=== PATIENT | male | born 1960 | race Caucasian/White ===

== ENCOUNTER 2019-08-31 16:10 | Inpatient (IN) | payer MEDICAID ==
[~2019-08-31] VITALS: Ht 190.5 cm; Wt 65.8 kg
[2019-08-31 15:10] VITALS: BP 115/79
[2019-08-31 17:11] VITALS: BP 115/79
[2019-08-31] MEDS ORDERED: TEMAZEPAM 15MG CAPSULE GT PRN (18:30)
[2019-08-31] MEDS ORDERED: BISACODYL 10MG SUPP PR PRN (18:30)
[2019-08-31 20:00] VITALS: BP 119/69
[2019-08-31] MEDS ORDERED: OLANZAPINE 5MG TABLET GT SCH (20:00)
[2019-08-31] MEDS ORDERED: IPRATROPIUM/ALBUTEROL 0.5-3(2.5)MG/3ML NEB HHN PRN (20:15)
[2019-08-31] MEDS ORDERED: DEXTROSE 50% WATER 50ML SYRINGE IV PRN (20:15)
[2019-08-31] MEDS ORDERED: BLOOD SUGAR DIAGNOSTIC STRIP TEST SCH (21:00)
[2019-08-31] MEDS: INSULIN LISPRO 100 UNITS/ML SUBCUT SCH (21:00)
[2019-08-31] MEDS: BLOOD SUGAR DIAGNOSTIC STRIP TEST SCH (21:00)
[2019-08-31] MEDS ORDERED: ENOXAPARIN 100MG/ML SYR SUBCUT SCH (21:00)
[2019-08-31] MEDS ORDERED: PNEUMOCOCCAL 23-VAL P-SAC VAC 0.5 ML IM ONE (21:45)
[2019-08-31] MEDS: FUROSEMIDE 40MG TABLET PO SCH (22:16)
[2019-08-31] MEDS: CARVEDILOL 3.125 MG TABLET GT SCH (22:19)
[2019-08-31] MEDS: FAMOTIDINE 20MG TABLET GT SCH (22:20)
[2019-08-31] MEDS: LACTULOSE 20G/30ML UDC PO SCH (22:22)
[2019-08-31] MEDS ORDERED: ENOXAPARIN 60MG/0.6ML SYR SUBCUT NR (22:30)
[2019-08-31] MEDS ORDERED: ENOXAPARIN 100MG/ML SYR SUBCUT NR (22:30)
[2019-08-31] MEDS: OLANZAPINE 5MG TABLET ODT GT SCH (22:36)
[2019-08-31] MEDS: INSULIN GLARGINE UD 100 UNITS/ML SYR SUBCUT SCH (22:55)
[2019-08-31] MEDS: ACETAMINOPHEN 650MG/20.3ML UDC GT PRN (23:32)
[2019-09-01] MEDS: LACTULOSE 20G/30ML UDC PO SCH ×3 (05:56→21:38)
[2019-09-01 06:19] LABS: CHLORIDE 102 mEq/L (98-107)
[2019-09-01] MEDS: BLOOD SUGAR DIAGNOSTIC STRIP TEST SCH ×4 (06:25→21:38)
[2019-09-01 06:29] LABS: BASOPHILS % 0.4 % (0.0-2.0); EOSINOPHILS % 4.4 % (0.0-5.0); HEMATOCRIT. 40.7 % (42.0-52.0); LYMPHOCYTES % 31.7 % (20.0-50.0); MEAN CORPUSCULAR HEMOGLOBIN 32.6 pg (28.0-32.0); MEAN CORPUSCULAR VOLUME 94.5 fL (80.0-94.0); MONOCYTES % 8.9 % (2.0-8.0); NEUTROPHILS % 54.6 % (40.0-76.0); PLATELET 228 x1000/uL (130-400); RED CELL DISTRIBUTION WIDTH 14.9 % (11.6-14.6)
[2019-09-01] MEDS: INSULIN LISPRO 100 UNITS/ML SUBCUT SCH ×4 (07:32→21:00)
[2019-09-01 07:53] VITALS: BP 117/83
[2019-09-01] MEDS: FUROSEMIDE 40MG TABLET PO SCH ×2 (08:32→21:38)
[2019-09-01] MEDS: POTASSIUM CHLORIDE 20MEQ TABLET SR PO SCH (08:32)
[2019-09-01] MEDS: AMIODARONE HCL 200 MG TABLET GT SCH (08:32)
[2019-09-01] MEDS: FAMOTIDINE 20MG TABLET GT SCH ×2 (08:32→21:37)
[2019-09-01] MEDS: SERTRALINE HCL 50MG TABLET GT SCH (08:33)
[2019-09-01] MEDS: ASCORBIC ACID 500 MG TABLET GT SCH (08:33)
[2019-09-01] MEDS: OLANZAPINE 5MG TABLET ODT GT SCH ×2 (08:33→17:34)
[2019-09-01] MEDS: CARVEDILOL 3.125 MG TABLET GT SCH ×2 (08:33→21:38)
[2019-09-01] MEDS: ENOXAPARIN 60MG/0.6ML SYR SUBCUT SCH ×2 (10:19→21:37)
[2019-09-01 10:42] LABS: PROTHROMBIN TIME 10.7 sec (9.6-11.0)
[2019-09-01] MEDS ORDERED: POTASSIUM CHLORIDE 20MEQ/PACKET PO NR (11:45)
[2019-09-01] MEDS ORDERED: BISACODYL 5MG TABLET PO PRN (18:00)
[2019-09-01 20:00] VITALS: BP 116/76
[2019-09-01] MEDS: INSULIN GLARGINE UD 100 UNITS/ML SYR SUBCUT SCH (21:41)
[2019-09-02] MEDS: LACTULOSE 20G/30ML UDC PO SCH ×3 (06:01→20:32)
[2019-09-02 06:13] LABS: BASOPHILS % 0.4 % (0.0-2.0); EOSINOPHILS % 4.8 % (0.0-5.0); HEMATOCRIT. 39.9 % (42.0-52.0); LYMPHOCYTES % 29.2 % (20.0-50.0); MEAN CORPUSCULAR HEMOGLOBIN 32.9 pg (28.0-32.0); MEAN PLATELET VOLUME 7.8 fl (7.4-10.4); MONOCYTES % 9.4 % (2.0-8.0); NEUTROPHILS % 56.2 % (40.0-76.0); PLATELET 230 x1000/uL (130-400); RED BLOOD CELL COUNT 4.24 mill/uL (4.7-6.1); RED CELL DISTRIBUTION WIDTH 14.5 % (11.6-14.6)
[2019-09-02 06:18] LABS: CHLORIDE 104 mEq/L (98-107)
[2019-09-02 06:27] LABS: TOTAL IRON BINDING CAPACITY 229 ug/dL (250-450)
[2019-09-02 07:35] LABS: PROSTRATE SPECIFIC AG TOTAL 0.15 ng/mL (0.0-4.0)
[2019-09-02 08:03] VITALS: BP 125/83
[2019-09-02 08:10] LABS: FOLIC ACID (FOLATE) SERUM 15.1 ng/mL (>5.38)
[2019-09-02] MEDS: ASCORBIC ACID 500 MG TABLET GT SCH (08:47)
[2019-09-02] MEDS: SERTRALINE HCL 50MG TABLET GT SCH (08:47)
[2019-09-02] MEDS: POTASSIUM CHLORIDE 20MEQ TABLET SR PO SCH (08:47)
[2019-09-02] MEDS: OLANZAPINE 5MG TABLET ODT GT SCH ×2 (08:47→17:06)
[2019-09-02] MEDS: FAMOTIDINE 20MG TABLET GT SCH ×2 (08:47→20:34)
[2019-09-02] MEDS: FUROSEMIDE 40MG TABLET PO SCH ×2 (08:48→20:34)
[2019-09-02] MEDS: CARVEDILOL 3.125 MG TABLET GT SCH ×2 (08:48→20:34)
[2019-09-02] MEDS: AMIODARONE HCL 200 MG TABLET GT SCH (08:48)
[2019-09-02] MEDS: ENOXAPARIN 60MG/0.6ML SYR SUBCUT SCH ×2 (08:48→20:33)
[2019-09-02] MEDS: INSULIN LISPRO 100 UNITS/ML SUBCUT SCH ×4 (08:48→20:42)
[2019-09-02] MEDS ORDERED: POTASSIUM CHLORIDE 20MEQ TABLET SR PO SCH (10:15)
[2019-09-02] MEDS: BLOOD SUGAR DIAGNOSTIC STRIP TEST SCH ×3 (11:24→20:43)
[2019-09-02] MEDS: MULTIVITAMINS,THER W-MINERALS TABLET PO SCH (12:53)
[2019-09-02] MEDS: FOLIC ACID 1MG TABLET PO SCH (12:53)
[2019-09-02] MEDS: THIAMINE HCL 100MG TABLET PO SCH (12:53)
[2019-09-02 15:35] LABS: ETHANOL BLOOD < 10 mg/dL
[2019-09-02 15:41] LABS: T4 FREE 1.05 ng/dL (0.76-1.46)
[2019-09-02 20:00] VITALS: BP 112/75
[2019-09-02] MEDS: ACETAMINOPHEN 650MG/20.3ML UDC GT PRN (20:33)
[2019-09-02] MEDS: INSULIN GLARGINE UD 100 UNITS/ML SYR SUBCUT SCH (22:41)
[2019-09-03] MEDS: LACTULOSE 20G/30ML UDC PO SCH ×3 (06:00→22:00)
[2019-09-03] MEDS: BLOOD SUGAR DIAGNOSTIC STRIP TEST SCH ×4 (06:45→21:04)
[2019-09-03 07:40] LABS: BASOPHILS % 0.5 % (0.0-2.0); EOSINOPHILS % 4.8 % (0.0-5.0); LYMPHOCYTES % 31.3 % (20.0-50.0); MEAN CORPUSCULAR HEMOGLOBIN 32.5 pg (28.0-32.0); MEAN CORPUSCULAR VOLUME 94.9 fL (80.0-94.0); MEAN PLATELET VOLUME 7.8 fl (7.4-10.4); MONOCYTES % 8.1 % (2.0-8.0); NEUTROPHILS % 55.3 % (40.0-76.0); PLATELET 234 x1000/uL (130-400); RED BLOOD CELL COUNT 4.31 mill/uL (4.7-6.1); RED CELL DISTRIBUTION WIDTH 14.7 % (11.6-14.6)
[2019-09-03 07:41] LABS: CHLORIDE 105 mEq/L (98-107)
[2019-09-03 08:12] VITALS: BP 127/81
[2019-09-03] MEDS: MULTIVITAMINS,THER W-MINERALS TABLET PO SCH (08:47)
[2019-09-03] MEDS: ENOXAPARIN 60MG/0.6ML SYR SUBCUT SCH ×2 (08:47→20:47)
[2019-09-03] MEDS: FOLIC ACID 1MG TABLET PO SCH (08:48)
[2019-09-03] MEDS: CARVEDILOL 3.125 MG TABLET GT SCH ×2 (08:48→20:48)
[2019-09-03] MEDS: OLANZAPINE 5MG TABLET ODT GT SCH ×2 (08:48→17:04)
[2019-09-03] MEDS: THIAMINE HCL 100MG TABLET PO SCH (08:48)
[2019-09-03] MEDS: SERTRALINE HCL 50MG TABLET GT SCH (08:48)
[2019-09-03] MEDS: POTASSIUM CHLORIDE 20MEQ TABLET SR PO SCH (08:48)
[2019-09-03] MEDS: FAMOTIDINE 20MG TABLET GT SCH ×2 (08:48→20:48)
[2019-09-03] MEDS: ASCORBIC ACID 500 MG TABLET GT SCH (08:49)
[2019-09-03] MEDS: FUROSEMIDE 40MG TABLET PO SCH ×2 (08:49→20:47)
[2019-09-03] MEDS: INSULIN LISPRO 100 UNITS/ML SUBCUT SCH ×4 (08:49→21:00)
[2019-09-03] MEDS: AMIODARONE HCL 200 MG TABLET GT SCH (08:49)
[2019-09-03] MEDS ORDERED: POTASSIUM CHLORIDE 20MEQ TABLET SR PO NR (14:30)
[2019-09-03 20:00] VITALS: BP 111/73
[2019-09-03] MEDS: INSULIN GLARGINE UD 100 UNITS/ML SYR SUBCUT SCH (22:53)
[2019-09-04] MEDS: LACTULOSE 20G/30ML UDC PO SCH ×3 (06:00→21:41)
[2019-09-04] MEDS: BLOOD SUGAR DIAGNOSTIC STRIP TEST SCH ×4 (06:30→21:39)
[2019-09-04 08:00] VITALS: BP 140/86
[2019-09-04] MEDS: FAMOTIDINE 20MG TABLET GT SCH ×2 (08:54→21:39)
[2019-09-04] MEDS: AMIODARONE HCL 200 MG TABLET GT SCH (08:55)
[2019-09-04] MEDS: FUROSEMIDE 40MG TABLET PO SCH ×2 (08:55→21:39)
[2019-09-04] MEDS: CARVEDILOL 3.125 MG TABLET GT SCH ×2 (08:55→21:00)
[2019-09-04] MEDS: FOLIC ACID 1MG TABLET PO SCH (08:55)
[2019-09-04] MEDS: OLANZAPINE 5MG TABLET ODT GT SCH ×2 (08:55→16:37)
[2019-09-04] MEDS: SERTRALINE HCL 50MG TABLET GT SCH (08:55)
[2019-09-04] MEDS: POTASSIUM CHLORIDE 20MEQ TABLET SR PO SCH (08:55)
[2019-09-04] MEDS: THIAMINE HCL 100MG TABLET PO SCH (08:55)
[2019-09-04] MEDS: ASCORBIC ACID 500 MG TABLET GT SCH (08:55)
[2019-09-04] MEDS: INSULIN LISPRO 100 UNITS/ML SUBCUT SCH ×4 (08:56→21:00)
[2019-09-04] MEDS: ENOXAPARIN 60MG/0.6ML SYR SUBCUT SCH ×2 (08:56→21:41)
[2019-09-04] MEDS: MULTIVITAMINS,THER W-MINERALS TABLET PO SCH (08:56)
[2019-09-04 20:00] VITALS: BP 118/74
[2019-09-04] MEDS: INSULIN GLARGINE UD 100 UNITS/ML SYR SUBCUT SCH (21:42)
[2019-09-05] MEDS: LACTULOSE 20G/30ML UDC PO SCH ×3 (05:35→21:31)
[2019-09-05 06:21] LABS: BASOPHILS % 0.3 % (0.0-2.0); EOSINOPHILS % 4.4 % (0.0-5.0); HEMATOCRIT. 42.9 % (42.0-52.0); HEMOGLOBIN. 14.7 g/dL (14.0-18.0); LYMPHOCYTES % 29.6 % (20.0-50.0); MEAN CORPUSCULAR HEMOGLOBIN 32.4 pg (28.0-32.0); MEAN CORPUSCULAR VOLUME 94.5 fL (80.0-94.0); MEAN PLATELET VOLUME 7.8 fl (7.4-10.4); MONOCYTES % 9.2 % (2.0-8.0); NEUTROPHILS % 56.5 % (40.0-76.0); PLATELET 235 x1000/uL (130-400); RED BLOOD CELL COUNT 4.54 mill/uL (4.7-6.1); RED CELL DISTRIBUTION WIDTH 14.6 % (11.6-14.6)
[2019-09-05] MEDS: BLOOD SUGAR DIAGNOSTIC STRIP TEST SCH ×4 (06:30→21:31)
[2019-09-05] MEDS: INSULIN LISPRO 100 UNITS/ML SUBCUT SCH ×4 (06:31→21:00)
[2019-09-05 07:02] LABS: CHLORIDE 105 mEq/L (98-107)
[2019-09-05 07:07] LABS: 25-HYDROXY VITAMIN D3 26 ng/mL (.)
[2019-09-05 07:47] VITALS: BP 123/77
[2019-09-05] MEDS: ENOXAPARIN 60MG/0.6ML SYR SUBCUT SCH ×2 (08:42→21:30)
[2019-09-05] MEDS: MULTIVITAMINS,THER W-MINERALS TABLET PO SCH (08:42)
[2019-09-05] MEDS: FAMOTIDINE 20MG TABLET GT SCH ×2 (08:43→21:30)
[2019-09-05] MEDS: POTASSIUM CHLORIDE 20MEQ TABLET SR PO SCH (08:43)
[2019-09-05] MEDS: SERTRALINE HCL 50MG TABLET GT SCH (08:43)
[2019-09-05] MEDS: FOLIC ACID 1MG TABLET PO SCH (08:43)
[2019-09-05] MEDS: FUROSEMIDE 40MG TABLET PO SCH ×2 (08:43→21:30)
[2019-09-05] MEDS: CARVEDILOL 3.125 MG TABLET GT SCH ×2 (08:43→21:00)
[2019-09-05] MEDS: ASCORBIC ACID 500 MG TABLET GT SCH (08:43)
[2019-09-05] MEDS: THIAMINE HCL 100MG TABLET PO SCH (08:43)
[2019-09-05] MEDS: AMIODARONE HCL 200 MG TABLET GT SCH (08:43)
[2019-09-05] MEDS: OLANZAPINE 5MG TABLET ODT GT SCH ×2 (08:43→16:43)
[2019-09-05 20:00] VITALS: BP 123/80
[2019-09-05] MEDS: INSULIN GLARGINE UD 100 UNITS/ML SYR SUBCUT SCH (21:31)
[2019-09-06] MEDS: LACTULOSE 20G/30ML UDC PO SCH ×3 (05:32→22:00)
[2019-09-06] MEDS: INSULIN LISPRO 100 UNITS/ML SUBCUT SCH ×4 (05:33→21:00)
[2019-09-06] MEDS: BLOOD SUGAR DIAGNOSTIC STRIP TEST SCH ×4 (05:33→21:39)
[2019-09-06 08:00] VITALS: BP_SYST 115; BP_DIAS 77; BP_DIAS 97
[2019-09-06 08:39] VITALS: BP 115/77
[2019-09-06] MEDS: FAMOTIDINE 20MG TABLET GT SCH ×2 (08:49→21:38)
[2019-09-06] MEDS: ENOXAPARIN 60MG/0.6ML SYR SUBCUT SCH ×2 (08:49→21:39)
[2019-09-06] MEDS: THIAMINE HCL 100MG TABLET PO SCH (08:50)
[2019-09-06] MEDS: FUROSEMIDE 40MG TABLET PO SCH ×2 (08:50→21:38)
[2019-09-06] MEDS: MULTIVITAMINS,THER W-MINERALS TABLET PO SCH (08:50)
[2019-09-06] MEDS: FOLIC ACID 1MG TABLET PO SCH (08:50)
[2019-09-06] MEDS: OLANZAPINE 5MG TABLET ODT GT SCH ×2 (08:50→16:54)
[2019-09-06] MEDS: AMIODARONE HCL 200 MG TABLET GT SCH (08:50)
[2019-09-06] MEDS: CARVEDILOL 3.125 MG TABLET GT SCH ×2 (08:50→21:00)
[2019-09-06] MEDS: POTASSIUM CHLORIDE 20MEQ TABLET SR PO SCH (08:50)
[2019-09-06] MEDS: ASCORBIC ACID 500 MG TABLET GT SCH (08:50)
[2019-09-06] MEDS: SERTRALINE HCL 50MG TABLET GT SCH (08:51)
[2019-09-06 20:00] VITALS: BP 114/73
[2019-09-06] MEDS: INSULIN GLARGINE UD 100 UNITS/ML SYR SUBCUT SCH (21:40)
[2019-09-07] MEDS: LACTULOSE 20G/30ML UDC PO SCH ×3 (05:39→21:47)
[2019-09-07] MEDS: BLOOD SUGAR DIAGNOSTIC STRIP TEST SCH ×4 (05:40→20:41)
[2019-09-07 08:39] VITALS: BP 123/84
[2019-09-07] MEDS: POTASSIUM CHLORIDE 20MEQ TABLET SR PO SCH (09:00)
[2019-09-07] MEDS: THIAMINE HCL 100MG TABLET PO SCH (09:00)
[2019-09-07] MEDS: FAMOTIDINE 20MG TABLET GT SCH ×2 (09:00→20:40)
[2019-09-07] MEDS: ENOXAPARIN 60MG/0.6ML SYR SUBCUT SCH ×2 (09:00→20:41)
[2019-09-07] MEDS: CARVEDILOL 3.125 MG TABLET GT SCH ×2 (09:00→20:39)
[2019-09-07] MEDS: FOLIC ACID 1MG TABLET PO SCH (09:00)
[2019-09-07] MEDS: AMIODARONE HCL 200 MG TABLET GT SCH (09:00)
[2019-09-07] MEDS: ASCORBIC ACID 500 MG TABLET GT SCH (09:00)
[2019-09-07] MEDS: FUROSEMIDE 40MG TABLET PO SCH ×2 (09:00→20:40)
[2019-09-07] MEDS: MULTIVITAMINS,THER W-MINERALS TABLET PO SCH (09:00)
[2019-09-07] MEDS: OLANZAPINE 5MG TABLET ODT GT SCH ×2 (09:00→17:55)
[2019-09-07] MEDS: INSULIN LISPRO 100 UNITS/ML SUBCUT SCH ×4 (09:00→21:48)
[2019-09-07] MEDS: SERTRALINE HCL 50MG TABLET GT SCH (09:00)
[2019-09-07 20:00] VITALS: BP 97/66
[2019-09-07] MEDS: ZOLPIDEM TARTRATE 5MG TABLET PO PRN (21:47)
[2019-09-07] MEDS: INSULIN GLARGINE UD 100 UNITS/ML SYR SUBCUT SCH (21:49)
[2019-09-08 06:18] LABS: BASOPHILS % 0.4 % (0.0-2.0); EOSINOPHILS % 4.3 % (0.0-5.0); HEMATOCRIT. 40.3 % (42.0-52.0); HEMOGLOBIN. 14.2 g/dL (14.0-18.0); LYMPHOCYTES % 29.7 % (20.0-50.0); MEAN CORPUSCULAR HEMOGLOBIN 32.9 pg (28.0-32.0); MEAN CORPUSCULAR VOLUME 93.5 fL (80.0-94.0); MEAN PLATELET VOLUME 7.9 fl (7.4-10.4); NEUTROPHILS % 56.6 % (40.0-76.0); PLATELET 235 x1000/uL (130-400); RED BLOOD CELL COUNT 4.31 mill/uL (4.7-6.1); RED CELL DISTRIBUTION WIDTH 14.4 % (11.6-14.6)
[2019-09-08] MEDS: LACTULOSE 20G/30ML UDC PO SCH ×4 (06:19→22:00)
[2019-09-08] MEDS: BLOOD SUGAR DIAGNOSTIC STRIP TEST SCH ×4 (06:20→21:58)
[2019-09-08] MEDS: INSULIN LISPRO 100 UNITS/ML SUBCUT SCH ×4 (06:25→21:00)
[2019-09-08 07:41] VITALS: BP 113/75
[2019-09-08 07:48] LABS: CHLORIDE 104 mEq/L (98-107)
[2019-09-08 08:11] LABS: 7-AMINOCLONAZEPAM CONFIRM Negative (.); ALPRAZOLAM CONFIRM Negative (.); BARBITURATE SCREEN Negative ug/mL (Cutoff:0.1); BENZODIAZEPINE SCREEN ++POSITIVE++ ng/mL (Cutoff:20); CHLORDIAZEPOXIDE CONFIRM Negative (.); CLONAZEPAM CONFIRM Negative (.); DESMETHYLCHLORDIAZEPOXIDE Negative (.); DIAZEPAM CONFIRM Negative (.); FLURAZEPAM CONFIRM Negative (.); LORAZEPAM CONFIRM Negative (.); MIDAZOLAM CONFIRM Negative (.); OPIATES SCREEN Negative ng/mL (Cutoff:5); OXAZEPAM CONFIRM Negative (.); PHENCYCLIDINE SCREEN Negative ng/mL (Cutoff:8); TEMAZEPAM CONFIRM 21 ng/mL (.); TRIAZOLAM CONFIRM Negative (.)
[2019-09-08] MEDS: POTASSIUM CHLORIDE 20MEQ TABLET SR PO SCH (08:42)
[2019-09-08] MEDS: OLANZAPINE 5MG TABLET ODT GT SCH ×2 (08:42→17:10)
[2019-09-08] MEDS: FAMOTIDINE 20MG TABLET GT SCH ×2 (08:42→21:59)
[2019-09-08] MEDS: MULTIVITAMINS,THER W-MINERALS TABLET PO SCH (08:42)
[2019-09-08] MEDS: SERTRALINE HCL 50MG TABLET GT SCH (08:42)
[2019-09-08] MEDS: FOLIC ACID 1MG TABLET PO SCH (08:42)
[2019-09-08] MEDS: THIAMINE HCL 100MG TABLET PO SCH (08:42)
[2019-09-08] MEDS: ENOXAPARIN 60MG/0.6ML SYR SUBCUT SCH ×2 (08:42→21:58)
[2019-09-08] MEDS: FUROSEMIDE 40MG TABLET PO SCH ×2 (08:43→21:59)
[2019-09-08] MEDS: ASCORBIC ACID 500 MG TABLET GT SCH (08:43)
[2019-09-08] MEDS: AMIODARONE HCL 200 MG TABLET GT SCH (08:43)
[2019-09-08] MEDS: CARVEDILOL 3.125 MG TABLET GT SCH ×2 (08:43→21:00)
[2019-09-08] MEDS: ACETAMINOPHEN 650MG/20.3ML UDC GT PRN (09:28)
[2019-09-08] MEDS ORDERED: ONDANSETRON 4MG ODT PO PRN (10:00)
[2019-09-08 20:00] VITALS: BP 115/75
[2019-09-08] MEDS: ZOLPIDEM TARTRATE 5MG TABLET PO PRN (22:18)
[2019-09-08] MEDS: INSULIN GLARGINE UD 100 UNITS/ML SYR SUBCUT SCH (22:21)
[2019-09-09] MEDS: LACTULOSE 20G/30ML UDC PO SCH ×3 (06:00→21:15)
[2019-09-09] MEDS: BLOOD SUGAR DIAGNOSTIC STRIP TEST SCH ×4 (06:33→21:14)
[2019-09-09] MEDS: INSULIN LISPRO 100 UNITS/ML SUBCUT SCH ×4 (06:36→21:00)
[2019-09-09 07:39] LABS: BASOPHILS % 0.4 % (0.0-2.0); EOSINOPHILS % 3.9 % (0.0-5.0); HEMATOCRIT. 43.1 % (42.0-52.0); HEMOGLOBIN. 14.8 g/dL (14.0-18.0); LYMPHOCYTES % 26.6 % (20.0-50.0); MEAN CORPUSCULAR HEMOGLOBIN 32.4 pg (28.0-32.0); MEAN CORPUSCULAR VOLUME 94.4 fL (80.0-94.0); MONOCYTES % 9.4 % (2.0-8.0); NEUTROPHILS % 59.7 % (40.0-76.0); PLATELET 239 x1000/uL (130-400); RED BLOOD CELL COUNT 4.57 mill/uL (4.7-6.1); RED CELL DISTRIBUTION WIDTH 14.4 % (11.6-14.6)
[2019-09-09 07:56] LABS: CHLORIDE 104 mEq/L (98-107)
[2019-09-09 08:00] VITALS: BP 123/86
[2019-09-09] MEDS: ASCORBIC ACID 500 MG TABLET GT SCH (09:44)
[2019-09-09] MEDS: SERTRALINE HCL 50MG TABLET GT SCH (09:44)
[2019-09-09] MEDS: FAMOTIDINE 20MG TABLET GT SCH ×2 (09:44→21:14)
[2019-09-09] MEDS: ENOXAPARIN 60MG/0.6ML SYR SUBCUT SCH ×2 (09:44→21:14)
[2019-09-09] MEDS: FOLIC ACID 1MG TABLET PO SCH (09:44)
[2019-09-09] MEDS: POTASSIUM CHLORIDE 20MEQ TABLET SR PO SCH (09:44)
[2019-09-09] MEDS: THIAMINE HCL 100MG TABLET PO SCH (09:44)
[2019-09-09] MEDS: FUROSEMIDE 40MG TABLET PO SCH ×2 (09:44→21:14)
[2019-09-09] MEDS: MULTIVITAMINS,THER W-MINERALS TABLET PO SCH (09:44)
[2019-09-09] MEDS: AMIODARONE HCL 200 MG TABLET GT SCH (09:44)
[2019-09-09] MEDS: CARVEDILOL 3.125 MG TABLET GT SCH ×2 (09:45→21:14)
[2019-09-09] MEDS: OLANZAPINE 5MG TABLET ODT GT SCH ×2 (09:45→17:00)
[2019-09-09 20:50] VITALS: BP 118/71
[2019-09-09] MEDS: INSULIN GLARGINE UD 100 UNITS/ML SYR SUBCUT SCH (21:35)
[2019-09-10] MEDS: LACTULOSE 20G/30ML UDC PO SCH ×3 (05:54→21:33)
[2019-09-10] MEDS: BLOOD SUGAR DIAGNOSTIC STRIP TEST SCH ×4 (05:55→21:33)
[2019-09-10 06:33] LABS: BASOPHILS % 0.3 % (0.0-2.0); EOSINOPHILS % 3.6 % (0.0-5.0); HEMATOCRIT. 40.6 % (42.0-52.0); HEMOGLOBIN. 14.3 g/dL (14.0-18.0); LYMPHOCYTES % 27.3 % (20.0-50.0); MEAN CORPUSCULAR HEMOGLOBIN 32.8 pg (28.0-32.0); MEAN CORPUSCULAR VOLUME 93.2 fL (80.0-94.0); MEAN PLATELET VOLUME 7.8 fl (7.4-10.4); MONOCYTES % 9.8 % (2.0-8.0); PLATELET 221 x1000/uL (130-400); RED BLOOD CELL COUNT 4.36 mill/uL (4.7-6.1)
[2019-09-10 06:42] LABS: CHLORIDE 103 mEq/L (98-107)
[2019-09-10 08:00] VITALS: BP 121/81
[2019-09-10] MEDS: OLANZAPINE 5MG TABLET ODT GT SCH ×2 (10:39→16:29)
[2019-09-10] MEDS: ENOXAPARIN 60MG/0.6ML SYR SUBCUT SCH ×2 (10:39→21:33)
[2019-09-10] MEDS: POTASSIUM CHLORIDE 20MEQ TABLET SR PO SCH (10:39)
[2019-09-10] MEDS: SERTRALINE HCL 50MG TABLET GT SCH (10:39)
[2019-09-10] MEDS: THIAMINE HCL 100MG TABLET PO SCH (10:40)
[2019-09-10] MEDS: FOLIC ACID 1MG TABLET PO SCH (10:40)
[2019-09-10] MEDS: FAMOTIDINE 20MG TABLET GT SCH ×2 (10:40→21:49)
[2019-09-10] MEDS: ASCORBIC ACID 500 MG TABLET GT SCH (10:40)
[2019-09-10] MEDS: FUROSEMIDE 40MG TABLET PO SCH ×2 (10:40→21:48)
[2019-09-10] MEDS: AMIODARONE HCL 200 MG TABLET GT SCH (10:41)
[2019-09-10] MEDS: CARVEDILOL 3.125 MG TABLET GT SCH ×2 (10:42→21:33)
[2019-09-10] MEDS: MULTIVITAMINS,THER W-MINERALS TABLET PO SCH (10:45)
[2019-09-10 12:00] VITALS: BP 134/78
[2019-09-10] MEDS: INSULIN LISPRO 100 UNITS/ML SUBCUT SCH ×3 (13:00→21:00)
[2019-09-10 16:00] VITALS: BP 121/77
[2019-09-10 20:41] VITALS: BP 115/73
[2019-09-10] MEDS: INSULIN GLARGINE UD 100 UNITS/ML SYR SUBCUT SCH (21:34)
[2019-09-11] MEDS: INSULIN LISPRO 100 UNITS/ML SUBCUT SCH ×4 (06:18→21:00)
[2019-09-11] MEDS: LACTULOSE 20G/30ML UDC PO SCH ×3 (06:18→21:46)
[2019-09-11] MEDS: BLOOD SUGAR DIAGNOSTIC STRIP TEST SCH ×4 (06:18→21:47)
[2019-09-11 08:00] VITALS: BP 132/89
[2019-09-11] MEDS: CARVEDILOL 3.125 MG TABLET GT SCH ×2 (09:06→21:46)
[2019-09-11] MEDS: FUROSEMIDE 40MG TABLET PO SCH ×2 (09:06→21:47)
[2019-09-11] MEDS: FAMOTIDINE 20MG TABLET GT SCH ×2 (09:06→21:47)
[2019-09-11] MEDS: ENOXAPARIN 60MG/0.6ML SYR SUBCUT SCH ×2 (09:06→21:57)
[2019-09-11] MEDS: MULTIVITAMINS,THER W-MINERALS TABLET PO SCH (09:06)
[2019-09-11] MEDS: OLANZAPINE 5MG TABLET ODT GT SCH ×2 (09:06→17:08)
[2019-09-11] MEDS: THIAMINE HCL 100MG TABLET PO SCH (09:06)
[2019-09-11] MEDS: POTASSIUM CHLORIDE 20MEQ TABLET SR PO SCH (09:06)
[2019-09-11] MEDS: ASCORBIC ACID 500 MG TABLET GT SCH (09:06)
[2019-09-11] MEDS: SERTRALINE HCL 50MG TABLET GT SCH (09:06)
[2019-09-11] MEDS: AMIODARONE HCL 200 MG TABLET GT SCH (09:07)
[2019-09-11] MEDS: FOLIC ACID 1MG TABLET PO SCH (09:07)
[2019-09-11] MEDS: ACETAMINOPHEN 650MG/20.3ML UDC GT PRN (19:47)
[2019-09-11 20:00] VITALS: BP 122/77
[2019-09-11] MEDS: INSULIN GLARGINE UD 100 UNITS/ML SYR SUBCUT SCH (22:00)
[2019-09-12] MEDS: LACTULOSE 20G/30ML UDC PO SCH ×3 (05:35→21:37)
[2019-09-12] MEDS: BLOOD SUGAR DIAGNOSTIC STRIP TEST SCH ×4 (06:37→21:37)
[2019-09-12] MEDS: INSULIN LISPRO 100 UNITS/ML SUBCUT SCH ×4 (06:55→21:00)
[2019-09-12 08:00] VITALS: BP 149/94
[2019-09-12] MEDS: SERTRALINE HCL 50MG TABLET GT SCH (08:23)
[2019-09-12] MEDS: FAMOTIDINE 20MG TABLET GT SCH ×2 (08:23→21:36)
[2019-09-12] MEDS: MULTIVITAMINS,THER W-MINERALS TABLET PO SCH (08:23)
[2019-09-12] MEDS: THIAMINE HCL 100MG TABLET PO SCH (08:23)
[2019-09-12] MEDS: ENOXAPARIN 60MG/0.6ML SYR SUBCUT SCH ×2 (08:23→21:37)
[2019-09-12] MEDS: FOLIC ACID 1MG TABLET PO SCH (08:23)
[2019-09-12] MEDS: ASCORBIC ACID 500 MG TABLET GT SCH (08:23)
[2019-09-12] MEDS: OLANZAPINE 5MG TABLET ODT GT SCH ×2 (08:23→16:14)
[2019-09-12] MEDS: POTASSIUM CHLORIDE 20MEQ TABLET SR PO SCH (08:23)
[2019-09-12] MEDS: FUROSEMIDE 40MG TABLET PO SCH ×2 (08:24→21:36)
[2019-09-12] MEDS: AMIODARONE HCL 200 MG TABLET GT SCH (08:24)
[2019-09-12] MEDS: CARVEDILOL 3.125 MG TABLET GT SCH ×2 (08:24→21:36)
[2019-09-12 20:00] VITALS: BP_SYST 133; BP_SYST 99; BP_DIAS 71; BP_DIAS 72
[2019-09-12] MEDS: INSULIN GLARGINE UD 100 UNITS/ML SYR SUBCUT SCH (21:38)
[2019-09-13] MEDS: LACTULOSE 20G/30ML UDC PO SCH ×3 (06:10→21:25)
[2019-09-13] MEDS: BLOOD SUGAR DIAGNOSTIC STRIP TEST SCH ×4 (06:11→21:25)
[2019-09-13] MEDS: INSULIN LISPRO 100 UNITS/ML SUBCUT SCH ×4 (06:11→21:00)
[2019-09-13 07:01] LABS: BASOPHILS % 0.4 % (0.0-2.0); EOSINOPHILS % 3.5 % (0.0-5.0); HEMATOCRIT. 43.3 % (42.0-52.0); HEMOGLOBIN. 14.8 g/dL (14.0-18.0); LYMPHOCYTES % 27.7 % (20.0-50.0); MEAN CORPUSCULAR HEMOGLOBIN 32.2 pg (28.0-32.0); MEAN CORPUSCULAR VOLUME 94.3 fL (80.0-94.0); MEAN PLATELET VOLUME 7.8 fl (7.4-10.4); MONOCYTES % 9.1 % (2.0-8.0); NEUTROPHILS % 59.3 % (40.0-76.0); PLATELET 218 x1000/uL (130-400); RED BLOOD CELL COUNT 4.59 mill/uL (4.7-6.1); RED CELL DISTRIBUTION WIDTH 14.1 % (11.6-14.6)
[2019-09-13 07:30] VITALS: BP 110/78
[2019-09-13 08:09] LABS: CHLORIDE 104 mEq/L (98-107)
[2019-09-13] MEDS: FUROSEMIDE 40MG TABLET PO SCH ×2 (08:44→21:25)
[2019-09-13] MEDS: MULTIVITAMINS,THER W-MINERALS TABLET PO SCH (08:44)
[2019-09-13] MEDS: THIAMINE HCL 100MG TABLET PO SCH (08:45)
[2019-09-13] MEDS: ASCORBIC ACID 500 MG TABLET GT SCH (08:45)
[2019-09-13] MEDS: OLANZAPINE 5MG TABLET ODT GT SCH ×2 (08:45→16:45)
[2019-09-13] MEDS: FAMOTIDINE 20MG TABLET GT SCH ×2 (08:45→21:25)
[2019-09-13] MEDS: AMIODARONE HCL 200 MG TABLET GT SCH (08:45)
[2019-09-13] MEDS: FOLIC ACID 1MG TABLET PO SCH (08:45)
[2019-09-13] MEDS: POTASSIUM CHLORIDE 20MEQ TABLET SR PO SCH (08:45)
[2019-09-13] MEDS: ENOXAPARIN 60MG/0.6ML SYR SUBCUT SCH ×2 (08:48→21:25)
[2019-09-13] MEDS: CARVEDILOL 3.125 MG TABLET GT SCH ×2 (08:49→21:00)
[2019-09-13] MEDS: SERTRALINE HCL 50MG TABLET GT SCH (08:49)
[2019-09-13] MEDS ORDERED: BARIUM SULFATE 176 GM SUSP.RECON ONE (09:02)
[2019-09-13 20:09] VITALS: BP 110/71
[2019-09-13] MEDS: INSULIN GLARGINE UD 100 UNITS/ML SYR SUBCUT SCH (21:27)
[2019-09-14] MEDS: LACTULOSE 20G/30ML UDC PO SCH ×2 (05:43→14:00)
[2019-09-14 06:41] LABS: HEMATOCRIT 41.8 % (42.0-52.0); HEMOGLOBIN 14.5 g/dL (14.0-18.0); MEAN CORPUSCULAR HEMOGLOBIN 32.8 pg (28.0-32.0); MEAN CORPUSCULAR VOLUME 94.5 fL (80.0-94.0); PLATELET 204 x1000/uL (130-400); RED BLOOD CELL COUNT 4.42 mill/uL (4.7-6.1); RED CELL DISTRIBUTION WIDTH 14.2 % (11.6-14.6)
[2019-09-14] MEDS: BLOOD SUGAR DIAGNOSTIC STRIP TEST SCH ×4 (06:46→21:41)
[2019-09-14] MEDS: INSULIN LISPRO 100 UNITS/ML SUBCUT SCH ×4 (07:30→21:00)
[2019-09-14 08:08] VITALS: BP 107/74
[2019-09-14 08:15] LABS: CHLORIDE 104 mEq/L (98-107)
[2019-09-14] MEDS: CARVEDILOL 3.125 MG TABLET GT SCH ×2 (09:00→21:00)
[2019-09-14] MEDS: AMIODARONE HCL 200 MG TABLET GT SCH (09:00)
[2019-09-14] MEDS: FOLIC ACID 1MG TABLET PO SCH (10:28)
[2019-09-14] MEDS: SERTRALINE HCL 50MG TABLET GT SCH (10:29)
[2019-09-14] MEDS: MULTIVITAMINS,THER W-MINERALS TABLET PO SCH (10:29)
[2019-09-14] MEDS: POTASSIUM CHLORIDE 20MEQ TABLET SR PO SCH (10:29)
[2019-09-14] MEDS: THIAMINE HCL 100MG TABLET PO SCH (10:29)
[2019-09-14] MEDS: OLANZAPINE 5MG TABLET ODT GT SCH ×2 (10:30→17:39)
[2019-09-14] MEDS: FUROSEMIDE 40MG TABLET PO SCH ×2 (10:30→21:40)
[2019-09-14] MEDS: ASCORBIC ACID 500 MG TABLET GT SCH (10:30)
[2019-09-14] MEDS: ENOXAPARIN 60MG/0.6ML SYR SUBCUT SCH ×2 (10:31→21:42)
[2019-09-14] MEDS: FAMOTIDINE 20MG TABLET GT SCH ×2 (17:39→21:40)
[2019-09-14 20:00] VITALS: BP 108/68
[2019-09-14 21:00] VITALS: BP 109/66
[2019-09-14] MEDS: INSULIN GLARGINE UD 100 UNITS/ML SYR SUBCUT SCH (22:00)
[2019-09-15] MEDS: BLOOD SUGAR DIAGNOSTIC STRIP TEST SCH ×4 (06:00→21:43)
[2019-09-15] MEDS: LACTULOSE 20G/30ML UDC PO SCH ×4 (06:00→22:00)
[2019-09-15] MEDS: INSULIN LISPRO 100 UNITS/ML SUBCUT SCH ×4 (06:47→21:00)
[2019-09-15 08:08] VITALS: BP 123/85
[2019-09-15] MEDS: ASCORBIC ACID 500 MG TABLET GT SCH (09:08)
[2019-09-15] MEDS: FUROSEMIDE 40MG TABLET PO SCH ×2 (09:08→20:46)
[2019-09-15] MEDS: MULTIVITAMINS,THER W-MINERALS TABLET PO SCH (09:08)
[2019-09-15] MEDS: CARVEDILOL 3.125 MG TABLET GT SCH (09:08)
[2019-09-15] MEDS: THIAMINE HCL 100MG TABLET PO SCH (09:08)
[2019-09-15] MEDS: FOLIC ACID 1MG TABLET PO SCH (09:09)
[2019-09-15] MEDS: AMIODARONE HCL 200 MG TABLET GT SCH (09:09)
[2019-09-15] MEDS: SERTRALINE HCL 50MG TABLET GT SCH (09:09)
[2019-09-15] MEDS: FAMOTIDINE 20MG TABLET GT SCH (09:09)
[2019-09-15] MEDS: OLANZAPINE 5MG TABLET ODT GT SCH ×2 (09:09→17:29)
[2019-09-15] MEDS: POTASSIUM CHLORIDE 20MEQ TABLET SR PO SCH (09:10)
[2019-09-15] MEDS: ENOXAPARIN 60MG/0.6ML SYR SUBCUT SCH ×2 (09:10→20:45)
[2019-09-15 20:00] VITALS: BP 109/76
[2019-09-15] MEDS: FAMOTIDINE 20MG TABLET PO SCH (20:45)
[2019-09-15] MEDS: CARVEDILOL 3.125 MG TABLET PO SCH (20:46)
[2019-09-15] MEDS: INSULIN GLARGINE UD 100 UNITS/ML SYR SUBCUT SCH (22:12)
[2019-09-16] MEDS: LACTULOSE 20G/30ML UDC PO SCH ×3 (06:00→21:24)
[2019-09-16] MEDS: INSULIN LISPRO 100 UNITS/ML SUBCUT SCH ×4 (06:20→21:00)
[2019-09-16] MEDS: BLOOD SUGAR DIAGNOSTIC STRIP TEST SCH ×4 (06:20→21:25)
[2019-09-16 06:49] LABS: BASOPHILS % 0.5 % (0.0-2.0); EOSINOPHILS % 3.1 % (0.0-5.0); HEMATOCRIT. 40.7 % (42.0-52.0); HEMOGLOBIN. 14.3 g/dL (14.0-18.0); LYMPHOCYTES % 26.1 % (20.0-50.0); MEAN CORPUSCULAR VOLUME 93.6 fL (80.0-94.0); MEAN PLATELET VOLUME 8.3 fl (7.4-10.4); MONOCYTES % 9.3 % (2.0-8.0); PLATELET 206 x1000/uL (130-400); RED BLOOD CELL COUNT 4.35 mill/uL (4.7-6.1); RED CELL DISTRIBUTION WIDTH 13.9 % (11.6-14.6)
[2019-09-16 07:02] LABS: CHLORIDE 105 mEq/L (98-107)
[2019-09-16 08:00] VITALS: BP 128/86
[2019-09-16] MEDS: AMIODARONE HCL 200 MG TABLET GT SCH (09:15)
[2019-09-16] MEDS: FOLIC ACID 1MG TABLET PO SCH (09:15)
[2019-09-16] MEDS: ASCORBIC ACID 500 MG TABLET GT SCH (09:15)
[2019-09-16] MEDS: FAMOTIDINE 20MG TABLET PO SCH ×2 (09:15→21:24)
[2019-09-16] MEDS: FUROSEMIDE 40MG TABLET PO SCH ×2 (09:15→21:25)
[2019-09-16] MEDS: SERTRALINE HCL 50MG TABLET GT SCH (09:15)
[2019-09-16] MEDS: MULTIVITAMINS,THER W-MINERALS TABLET PO SCH (09:15)
[2019-09-16] MEDS: OLANZAPINE 5MG TABLET ODT GT SCH ×2 (09:16→16:19)
[2019-09-16] MEDS: POTASSIUM CHLORIDE 20MEQ TABLET SR PO SCH (09:16)
[2019-09-16] MEDS: THIAMINE HCL 100MG TABLET PO SCH (09:16)
[2019-09-16] MEDS: CARVEDILOL 3.125 MG TABLET PO SCH ×2 (09:17→21:25)
[2019-09-16] MEDS: ENOXAPARIN 60MG/0.6ML SYR SUBCUT SCH ×2 (09:18→21:30)
[2019-09-16] MEDS ORDERED: OLAN5TAB6 GT (14:34)
[2019-09-16] MEDS ORDERED: AMI2 GT (14:34)
[2019-09-16] MEDS ORDERED: FURO40TA5 PO (14:34)
[2019-09-16] MEDS ORDERED: LACT10SO7 PO (14:34)
[2019-09-16] MEDS ORDERED: LANTUSUD SUBCUT (14:34)
[2019-09-16] MEDS ORDERED: COR3 PO (14:34)
[2019-09-16] MEDS ORDERED: POTA20TA82 PO (14:34)
[2019-09-16] MEDS ORDERED: ASCO500T20 GT (14:34)
[2019-09-16] MEDS ORDERED: SERT50TA GT (14:34)
[2019-09-16] MEDS ORDERED: THIA100T72 PO (14:34)
[2019-09-16 20:00] VITALS: BP 115/76
[2019-09-16] MEDS: INSULIN GLARGINE UD 100 UNITS/ML SYR SUBCUT SCH (22:59)
[2019-09-17] MEDS: LACTULOSE 20G/30ML UDC PO SCH ×2 (06:00→13:15)
[2019-09-17] MEDS: BLOOD SUGAR DIAGNOSTIC STRIP TEST SCH ×2 (06:06→11:15)
[2019-09-17 08:06] VITALS: BP 119/84
[2019-09-17] MEDS: SERTRALINE HCL 50MG TABLET GT SCH (08:52)
[2019-09-17] MEDS: FUROSEMIDE 40MG TABLET PO SCH (08:52)
[2019-09-17] MEDS: POTASSIUM CHLORIDE 20MEQ TABLET SR PO SCH (08:52)
[2019-09-17] MEDS: ASCORBIC ACID 500 MG TABLET GT SCH (08:52)
[2019-09-17] MEDS: OLANZAPINE 5MG TABLET ODT GT SCH (08:52)
[2019-09-17] MEDS: ENOXAPARIN 60MG/0.6ML SYR SUBCUT SCH (08:52)
[2019-09-17] MEDS: AMIODARONE HCL 200 MG TABLET GT SCH (08:52)
[2019-09-17] MEDS: FAMOTIDINE 20MG TABLET PO SCH (08:52)
[2019-09-17] MEDS: FOLIC ACID 1MG TABLET PO SCH (08:52)
[2019-09-17] MEDS: THIAMINE HCL 100MG TABLET PO SCH (08:52)
[2019-09-17] MEDS: MULTIVITAMINS,THER W-MINERALS TABLET PO SCH (08:52)
[2019-09-17] MEDS: CARVEDILOL 3.125 MG TABLET PO SCH (08:53)
[2019-09-17] MEDS: INSULIN LISPRO 100 UNITS/ML SUBCUT SCH ×2 (08:53→13:35)
[2019-09-17 09:24] VITALS: BP 119/84
== END 2019-09-17 17:15 | disposition home health service (06) | DRG 52 ==
PROVIDERS: ADMIT Physical Medicine & Rehabilitation Spinal Cord Injury Medicine; ATTEND Family Medicine Adult Medicine
DX: G92 Toxic encephalopathy (principal); I26.99 Other pulmonary embolism without acute cor pulmonale; Z93.0 Tracheostomy status; R13.10 Dysphagia, unspecified; I50.9 Heart failure, unspecified; I11.0 Hypertensive heart disease with heart failure; I48.0 Paroxysmal atrial fibrillation; G82.50 Quadriplegia, unspecified; G93.1 Anoxic brain damage, not elsewhere classified; I48.20 Chronic atrial fibrillation, unspecified; Z86.74 Personal history of sudden cardiac arrest; Z93.1 Gastrostomy status; E11.9 Type 2 diabetes mellitus without complications; Z86.711 Personal history of pulmonary embolism; Z79.01 Long term (current) use of anticoagulants; Z86.718 Personal history of other venous thrombosis and embolism; E78.5 Hyperlipidemia, unspecified; Z87.442 Personal history of urinary calculi; Z82.3 Family history of stroke; R47.1 Dysarthria and anarthria; R26.9 Unspecified abnormalities of gait and mobility; R53.81 Other malaise; F32.9 Major depressive disorder, single episode, unspecified; F10.10 Alcohol abuse, uncomplicated; E87.6 Hypokalemia; F17.210 Nicotine dependence, cigarettes, uncomplicated; F15.10 Other stimulant abuse, uncomplicated; R47.02 Dysphasia; Z20.828 Contact with and (suspected) exposure to other viral communicable diseases; E55.9 Vitamin D deficiency, unspecified; Z95.828 Presence of other vascular implants and grafts
CPT/HCPCS: 36415; 70551; 74230; 80048; 80053; 80307; 80320; 82140; 82306; 82607; 82728; 82746; 82962; 83036; 83540; 83550; 83735; 84134; 84153; 84439; 84443; 84481; 85025; 85027; 90732; 92523; 92610; 92611; 93005; 93306; 93970; 97110; 97112; 97116; 97162; 97167; 97530; 97535; J1650; J1815; Q0162; G0103; G0480